=== PATIENT | female | born 1960 | race Two or more races ===

== ENCOUNTER → 2017-10-04 07:27 | Day surgery (SDC) | payer OTHER ==
--- NOTE | 2017-10-02 23:01 | HP ---
CC: Yuridia Zuñiga, MEÑO, Georgia Merida* ADMISSION HISTORY AND PHYSICAL: DATE OF ADMISSION: 10/04/17 DATE OF HISTORY AND PHYSICAL: 10/01/17 ATTENDING SURGEON: Dr. Norman Floyd* (dictated by MELY Vidal). CHIEF COMPLAINT: Left breast cancer. HISTORY OF PRESENT ILLNESS: This is a 57-year-old generally healthy female, who first noted a lump in the left breast in early August. She is quite sure it was not there in June of this year and she tries to do a breast self-exam every month or two. She had had a prior stereotactic biopsy in the same region of the left breast around April 2016, which was benign. Most recent mammogram and ultrasound performed on 09/13/17 revealed a 2.4 x 1.7 cm lesion in the region of the prior biopsy marker (3 to 4 o'clock position of the left breast and by ultrasound located 4 cm from the nipple). This was felt to be suspicious for carcinoma and was new versus her last mammogram from March 2016. She was seen in the office by Dr. Floyd on 09/18/17. By his exam, there was a palpable mass in the lateral aspect of the left breast without any other discrete nodules in the left breast and no palpable nodules in the right breast. There is no palpable lymphadenopathy. 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 The patient's family history is positive for breast cancer in her mother, who is living and was diagnosed with breast cancer at age 79. Her mother ultimately underwent mastectomy. There is no family history of ovarian cancer. Dr. Floyd has discussed the options with the patient. She understands the indications, risks, benefits, and alternatives and would like to proceed as scheduled with wide excision of left breast cancer with sentinel lymph node biopsy. PAST MEDICAL HISTORY: Sciatica, arthritis, and degenerative disk disease. PAST SURGICAL HISTORY: Subtotal hysterectomy for benign disease. CURRENT MEDICATIONS: 1. Premarin 0.625 mg once daily (the patient instructed to stop). 2. Tylenol 325 mg b.i.d. and p.r.n. 3. Ibuprofen p.r.n. ALLERGIES: Drug allergies, none known. FAMILY HISTORY: In addition to above is negative for anesthesia problems, bleeding, or clotting disorders. SOCIAL HISTORY: The patient is and has 2 children. She is a current smoker of approximately 10 cigarettes per day for a total 20 pack year history. She is strongly encouraged to quit. She drinks alcohol occasionally, but not daily or weekly and denies other recreational drug use. REVIEW OF SYSTEMS: General: No recent constitutional symptoms or acute illnesses. Her weight has been stable. Eyes: No recent changes in vision. Ears, Nose, Throat: No problems reported. Cardiovascular: No chest pain, palpitations, history of hypertension. She states that she has been told in the past that she has mitral valve prolapse. Respiratory: No chronic cough or shortness of breath. GI: No problems reported. The patient has never had a screening colonoscopy. She is encouraged to do so. She denies any concerning symptoms. : No problems reported. 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 Endocrine: No thyroid dysfunction or diabetes. Neuro/Psych: No problems reported. Musculoskeletal: She has some chronic lower back pain and sciatica. PHYSICAL EXAMINATION GENERAL: Well-nourished, well-developed female, in no acute distress though she is somewhat teary during the interview. VITAL SIGNS: Height 61 inches, weight 150 pounds, blood pressure 132/80, pulse 102, respirations 16. HEENT: Pupils equal, round, and reactive. EOMs intact. No conjunctival pallor. Oropharynx: No intraoral lesions. NECK: No lymphadenopathy, thyromegaly, or masses. No supraclavicular or cervical lymphadenopathy. BREASTS: As per Dr. Floyd's exam, not repeated today. LUNGS: Clear to auscultation. No rales or wheezes. HEART: Regular rate and rhythm. No murmur noted. ABDOMEN: Soft, nontender to palpation. No palpable masses or organomegaly. GENITALIA: Not done. RECTAL: Not done. BACK: No spinous process or CVA tenderness. EXTREMITIES: No edema. NEUROLOGICAL: Grossly intact. SKIN: Warm and dry. No suspicious rashes or lesions. IMPRESSION: Left breast cancer. PLAN: Wide excision left breast cancer; sentinel lymph node biopsy. MELY VIDAL [id number]/[facility] #: [id number] MTDErnst
[~2017-10-04 07:27] MED LIST: Buffered Lidocaine 0.9% SYRIN* 5 ML/SYR SYRINGE INTRADERM ONE; Buffered Lidocaine 0.9% SYRIN* 5 ML/SYR SYRINGE ONE; Bupivacaine 0.25% SDV* 30 ML ONE; Dexamethasone IV* 4 MG/ML 1 ML (4 MG) ONE; EPHEDrine (Pressors)* 50 MG/ML VIAL ONE; Famotidine IV* 10 MG/ML 2 ML (20 mg) IV ONE; Famotidine IV* 10 MG/ML 2 ML (20 mg) ONE; Glycopyrrolate IV* 0.2 MG/ML 1 ML VIAL ONE; KETAMINE HCL* 50 MG/ML 10 ML VIAL ONE; Ketorolac INJ* 30 MG/ML 1 ML VIAL ONE; Lidocain 1% EPI 1:100,000 * 30 ML MDV ONE; Lidocaine 1% INJ* 10 MG/ML 30 ML SDV ONE; Lidocaine 2% PF * 5 ML VIAL ONE; Lidocaine 2.5%/Prilocain 2.5%* 5 GM TUBE ONE; Metoclopramide TAB* 10 MG ONE; Metoclopramide TAB* 10 MG PO ONE; Midazolam* 1 MG/ML 5 ML VIAL (5 MG) ONE; Naloxone* 0.4 MG/ML 1 ML VIAL IV PRN; Neostigmine Methylsulfate* 1 MG/ML 10 ML VIAL (1 mg/ml) ONE; Ondansetron ODT TAB* 4 MG PO PRN; Propofol* 10 MG/ML 20 ML BTL IV PUSH ONE; ceFAZolin 2 GM PREMIX (*) 2 GM/50 ML BAG IVPB ONE; fentaNYL* 50 MCG/ML 2 ML VIAL (100 MCG VIAL) IV PRN; fentaNYL* 50 MCG/ML 2 ML VIAL (100 MCG VIAL) ONE; oxyCODONE/Acetamin 5/325 MG* TAB PO PRN
--- NOTE | 2017-10-04 09:02 | RAD ---
INDICATION: Left breast carcinoma. Comparison: Correlation is made with prior mammogram from May 03, 2016. Technique: The benefits and risks of the procedure were explained to the patient. The patient consented to the exam. A timeout was performed before beginning the procedure. 0.3 mCi of technetium 99m filtered sulfur colloid were injected in a georgette-areolar location. Four intradermal injections were made. The patient tolerated the procedure well without incident. Multiple images of the chest and left axilla were obtained in the frontal, oblique and lateral projections. FINDINGS: There are 2 nodes with activity seen in the left axilla. The first and more prominent node is located more inferior. Both lymph nodes were marked on the patient's skin. IMPRESSION: LEFT AXILLARY SENTINEL NODES NOTED.
[2017-10-04 14:55] VITALS: BP 123/80
--- NOTE | 2017-10-05 07:15 | OP ---
CC: Yuridia Zuñiga NP * DATE OF OPERATION: 10/04/17 - [facility] DATE OF : 62 SURGEON: Norman Floyd MD LATRINE CLEANER: Cherie Singh NP ANESTHESIOLOGIST: Philip Villarreal MD ANESTHESIA: General anesthetic, local infiltration. PRE-OP DIAGNOSIS: Carcinoma of the left breast. POST-OP DIAGNOSIS: Carcinoma of the left breast. OPERATIVE PROCEDURE: Wide excision, sentinel node biopsy of left breast cancer. DESCRIPTION OF PROCEDURE: The patient was supine on the operative table. After adequate general anesthetic, compression stockings, Vi Hugger warmer, and intravenous antibiotics, the left breast, and axillary regions were prepped with antiseptic, draped in a sterile fashion. The left breast mass was readily palpable. An elliptical incision, approximately 3 x 6 cm, was created and the mass was excised with a wide excision. This was marked with usual localizing sutures and sent fresh to Pathology. The tumor felt close to the deep margin, so additional tissue was taken from the deep margin. This was taken down through the pectoralis fascia. Suture was placed to tierra the true deep margin. Hemostasis was obtained using electrocautery. Irrigation was carried out and closure accomplished using 3-0 and 5-0 Vicryl. In the axilla, local anesthetic was again administered and about a 3- to 4-cm incision was created. Dissection carried down to the axillary rissa basin. An enlarged node was first identified. This was about 1.5 cm in size. It was not hot, but it was removed and then beneath that, was the hot sentinel node. This was sentinel node #1 with a count of about 2500. The basin count was down to about 2 or 3 following its removal. No additional sentinel nodes were identified. Hemostasis was obtained using electrocautery. The closure was accomplished using 3-0 and 5-0 Vicryl following by Steri-Strips in all cases. She was awakened and brought to Recovery in good condition. No complications. No drains. Pathologic specimens were: 1. Wide excision, left breast, with usual marking sutures. 2. Additional deep tissue sutured to margin. 3. [place] node #1 count to 2500. 4. Additional left axillary lymph node. Estimated blood loss for the procedure was less than 100 mL. There were no complications. [id number]/[facility] #: [id number] [facility]
== END | disposition home or self-care (01) ==
LOC: SDS 07:27
PROVIDERS: ATTEND Surgery
DX: C50.512 Malignant neoplasm of lower-outer quadrant of left female breast (principal); I34.1 Nonrheumatic mitral (valve) prolapse; F17.210 Nicotine dependence, cigarettes, uncomplicated; M19.90 Unspecified osteoarthritis, unspecified site; F41.9 Anxiety disorder, unspecified
CPT/HCPCS: 78195; 88305; 88307; 88342; A9270-GY; A9541; J0690; J1100; J1885; J2250; J2704; J2710; J3010

== ENCOUNTER 2019-08-11 14:08 | Emergency (ER) | payer SELFPAY ==
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
[2019-08-11] MEDS ORDERED: levETIRAcetam 1000MG IVPREMIX* 1,000 MG/100 ML BAG IVPB ONE (15:44)
[2019-08-11 16:13] LABS: ABS Basophils 0.1 10^3/ul (0-0.2); ABS Monocytes 0.8 10^3/ul (0-0.8); ABS Neutrophils 13.7 10^3/ul (1.5-7.7); Eosinophil % 0.2 %; Hematocrit 42 % (35-47); Hemoglobin 13.8 g/dL (12.0-16.0); Lymphocyte % 6.4 %; Mean Corpuscular HGB Conc 33 g/dL (31-36); Mean Corpuscular Hemoglobin 31 pg (27-31); Mean Corpuscular Volume 92 fL (80-97); Mean Platelet Volume 7.9 fL (7.4-10.4); Platelet Count 366 10^3/uL (150-450); Red Blood Count 4.52 10^6 /uL (3.70-4.87); Red Cell Distribution Width 14 % (10-15); White Blood Count 15.6 10^3/uL (3.5-10.8)
[2019-08-11 16:22] LABS: INR 1.01 (0.82-1.09)
[2019-08-11 16:24] LABS: Albumin 4.2 g/dL (3.2-5.2); Albumin/Globulin Ratio 1.4 (1-3); BUN/Creatinine Ratio 26.1 (8-20); EGFR African American 106.1 (>60); EGFR Non-African American 87.7 (>60); Globulin 3.1 g/dL (2-4); Potassium 3.8 mmol/L (3.5-5.0); Total Bilirubin 0.5 mg/dL (0.2-1.0); Total Protein 7.3 g/dL (6.4-8.9)
[2019-08-11 16:45] LABS: Urine Appearance Turbid; Urine Bilirubin Negative (Negative); Urine Blood 2+ (Negative); Urine Color Yellow; Urine Glucose 1+(50 mg/dL) (Negative); Urine Ketones Negative (Negative); Urine Nitrite Positive (Negative); Urine Protein 2+(100 mg/dL) (Negative); Urine Specific Gravity 1.019 (1.010-1.030); Urine Urobilinogen Negative (Negative)
[2019-08-11 16:52] LABS: Urine Bacteria Absent (Absent); Urine Red Blood Cell 3+(>10/hpf) (Absent); Urine White Blood Cell 3+(>20/hpf) (Absent)
[2019-08-11 17:14] LABS: Urine Benzodiazepine Screen None Detected (None Detect); Urine Opiates Screen Presumptive Positive (None Detect)
[2019-08-11 17:36] VITALS: BP 128/77
== END 2019-08-11 17:34 | disposition short-term general hospital (02) ==
LOC: ED 14:08
DX: S06.5X0A Traumatic subdural hemorrhage without loss of consciousness, initial encounter (principal); S06.6X0A Traumatic subarachnoid hemorrhage without loss of consciousness, initial encounter; S06.1X0A Traumatic cerebral edema without loss of consciousness, initial encounter; V03.90XA Pedestrian on foot injured in collision with car, pick-up truck or van, unspecified whether traffic or nontraffic accident, initial encounter; Y92.524 Gas station as the place of occurrence of the external cause; I34.1 Nonrheumatic mitral (valve) prolapse; F41.9 Anxiety disorder, unspecified; F17.210 Nicotine dependence, cigarettes, uncomplicated; Z87.442 Personal history of urinary calculi; Z90.710 Acquired absence of both cervix and uterus; M50.31 Other cervical disc degeneration, high cervical region
CPT/HCPCS: 36415; 70450; 71045; 72125; 72170; 80053; 80307; 80320; 81003; 81015; 83605; 85025; 85610; 86850; 86900; 86901; 87077; 87086; 87186; 93005; 96365; 99285; G0480; J1953

== ENCOUNTER 2023-03-30 10:41 | Inpatient (IN) ==
[2023-03-30] MEDS ORDERED: fentaNYL INFUSION 50 mcg/mL VL 2,500 MCG/50 ML VIAL IV SCH (12:00)
[2023-03-30] MEDS: Propofol 10 mg/ml 100 ML BTL 1,000 MG/100 ML BTL IV SCH ×3 (12:05→23:35)
[2023-03-30 12:44] LABS: Resp Rate 16
[2023-03-30 12:46] LABS: PCO2 Arterial 43 mmHg (35-45); PO2 Arterial 120 mmHg (80-100)
[2023-03-30] MEDS ORDERED: fentaNYL 100 mcg/2 ml 50 MCG/ML VIAL IV SLOW PU ONE (13:03)
[2023-03-30 13:08] LABS: ABS Basophils 0.1 10^3/uL (0.0-0.1); ABS Monocytes 0.4 10^3/uL (0.0-0.9); ABS Neutrophils 12.8 10^3/uL (1.5-7.6); Eosinophil % 0.1 %; Hematocrit 36.2 % (35-45); Lymphocyte % 6.9 %; Mean Corpuscular Hemoglobin 29.9 pg (27-33); Mean Corpuscular Hgb Conc 33.1 g/dL (31-36); Mean Corpuscular Volume 90.4 fL (80-97); Mean Platelet Volume 7.1 fL (7.5-11.2); Platelet Count 391 10^3/uL (150-450); Red Cell Distribution Width 14.1 % (12-17); White Blood Count 14.3 10^3/uL (3.8-11.8)
[2023-03-30 13:17] LABS: Urine Appearance Cloudy; Urine Bilirubin Negative (Negative); Urine Blood 2+ (Negative); Urine Color Yellow; Urine Glucose Negative (Negative); Urine Ketones 1+ (Negative); Urine Nitrite Negative (Negative); Urine Protein Negative (Negative); Urine Specific Gravity 1.016 (1.002-1.030); Urine Urobilinogen Negative (Negative)
[2023-03-30 13:22] LABS: INR 1.06 (0.83-1.13)
[2023-03-30 13:26] LABS: Albumin 3.8 g/dL (3.2-5.2); Albumin/Globulin Ratio 1.5 (1-3); Calcium 8.8 mg/dL (8.6-10.3); Creatinine, Serum 0.51 mg/dL (0.51-0.95); Globulin 2.6 g/dL (2-4); Magnesium 1.9 mg/dL (1.9-2.7); Phosphorus 4.5 mg/dL (2.5-5.0); Potassium 3.6 mmol/L (3.5-5.0); Total Bilirubin 0.4 mg/dL (0.2-1.0); Total Protein 6.4 g/dL (6.4-8.9); eGFR CKD-EPI 106.1 (>60)
[2023-03-30 13:38] LABS: Urine Amorphous Crystals Present /HPF (Absent); Urine Bacteria Absent (Absent); Urine Red Blood Cell 3+(>10/hpf) (Absent); Urine White Blood Cell 1+(6-10/hpf) (Absent)
[2023-03-30 14:05] LABS: T4, Total 10.43 mcg/dL (6.09-12.23)
[2023-03-30 14:09] LABS: TSH Ultra Thyroid Stim Horm 1.7 mcIU/mL (0.34-5.60)
[2023-03-30] MEDS: Enoxaparin 40 MG/0.4 ML SYR SUBCUT SCH (14:40)
[2023-03-30] MEDS: Chlorhexidine MOUTHWASH 0.12% 15 ML UDC SWISH SPIT SCH ×3 (14:40→21:01)
[2023-03-30] MEDS: cefTRIAXone 1 gm/50 mL D5W 1 GM/50 ML BAG IV SCH (17:49)
[2023-03-30] MEDS: levETIRAcetam 1000MG IVPREMIX 1,000 MG/100 ML BAG IVPB SCH (20:56)
[2023-03-31] MEDS: Chlorhexidine MOUTHWASH 0.12% 15 ML UDC SWISH SPIT SCH ×6 (01:47→21:17)
[2023-03-31] MEDS ORDERED: Lactated Ringers 1000 ml BAG 1,000 ML IV ONE (02:07)
[2023-03-31] MEDS ORDERED: NS 0.9% 1000 ml BAG 1,000 ML IV SCH ×2 (02:15→07:30)
[2023-03-31] MEDS: Propofol 10 mg/ml 100 ML BTL 1,000 MG/100 ML BTL IV SCH ×4 (03:20→18:24)
[2023-03-31 05:34] LABS: ABS Eosinophils 0.1 10^3/uL (0.0-0.5); ABS Lymphocytes 1.4 10^3/uL (1.0-4.8); ABS Monocytes 0.9 10^3/uL (0.0-0.9); ABS Neutrophils 9.6 10^3/uL (1.5-7.6); ABS Nucleated RBC 0.01 10^3/ul; Eosinophil % 1.1 %; Hematocrit 37.3 % (35-45); Hemoglobin 12.1 g/dL (11.5-14.3); Lymphocyte % 11.9 %; Mean Corpuscular Hemoglobin 29.6 pg (27-33); Mean Corpuscular Hgb Conc 32.5 g/dL (31-36); Mean Platelet Volume 7.1 fL (7.5-11.2); Nucleated Red Blood Cells % 0.1 %/100WBC (0.0-0.8); Platelet Count 356 10^3/uL (150-450); Red Cell Distribution Width 14.5 % (12-17); White Blood Count 12.1 10^3/uL (3.8-11.8)
[2023-03-31 06:51] LABS: Albumin 3.7 g/dL (3.2-5.2); Albumin/Globulin Ratio 1.6 (1-3); Calcium 8.6 mg/dL (8.6-10.3); Creatinine, Serum 0.54 mg/dL (0.51-0.95); Globulin 2.3 g/dL (2-4); Phosphorus 3.7 mg/dL (2.5-5.0); Potassium 3.8 mmol/L (3.5-5.0); Total Bilirubin 0.4 mg/dL (0.2-1.0); eGFR CKD-EPI 104.7 (>60)
[2023-03-31] MEDS ORDERED: KCL 20 MEQ/100 ML IVPREMIX 20 MEQ/100 ML BAG IV ONE (07:14)
[2023-03-31] MEDS ORDERED: Dextrose 50% Syringe 50 ml 25 GM/50 ML SYRINGE IV PUSH ONE (07:19)
[2023-03-31] MEDS ORDERED: Midazolam 2 mg/2 ml VIAL 1 mg/ml 2 ml VIAL (2 mg) IV SLOW PU ONE (07:20)
[2023-03-31] MEDS ORDERED: Midazolam 2 mg/2 ml VIAL 1 mg/ml 2 ml VIAL (2 mg) ONE (07:21)
[2023-03-31] MEDS ORDERED: D5LR 1000 ml BAG 1,000 ML IV SCH (08:00)
[2023-03-31] MEDS: Pantoprazole VIAL 40 MG VIAL IV SCH (08:37)
[2023-03-31] MEDS: fentaNYL INFUSION 50 mcg/mL VL 2,500 MCG/50 ML VIAL IV SCH ×2 (09:00→19:04)
[2023-03-31] MEDS ORDERED: Midazolam 2 mg/2 ml VIAL 1 mg/ml 2 ml VIAL (2 mg) IV SLOW PU PRN (09:01)
[2023-03-31] MEDS: levETIRAcetam 1000MG IVPREMIX 1,000 MG/100 ML BAG IVPB SCH ×2 (09:47→20:13)
[2023-03-31] MEDS ORDERED: Dexmedetomidine 1,000 MCG in NS 0.9% 250 ml 240 ML IV SCH (10:00)
[2023-03-31 12:27] LABS: PCO2 Arterial 37 mmHg (35-45); PO2 Arterial 92 mmHg (80-100)
[2023-03-31] MEDS: Buprenorp/Nalox 2-0.5 mg SL TB SL SCH (12:38)
[2023-03-31] MEDS: cefTRIAXone 1 gm/50 mL D5W 1 GM/50 ML BAG IV SCH (16:48)
[2023-03-31] MEDS: Enoxaparin 40 MG/0.4 ML SYR SUBCUT SCH (16:49)
[2023-04-01] MEDS: Propofol 10 mg/ml 100 ML BTL 1,000 MG/100 ML BTL IV SCH ×2 (01:02→06:03)
[2023-04-01] MEDS: Chlorhexidine MOUTHWASH 0.12% 15 ML UDC SWISH SPIT SCH ×3 (01:02→08:22)
[2023-04-01] MEDS: fentaNYL INFUSION 50 mcg/mL VL 2,500 MCG/50 ML VIAL IV SCH (06:05)
[2023-04-01] MEDS: levETIRAcetam 1000MG IVPREMIX 1,000 MG/100 ML BAG IVPB SCH ×2 (07:53→21:09)
[2023-04-01] MEDS: Pantoprazole VIAL 40 MG VIAL IV SCH (07:53)
[2023-04-01] MEDS: Buprenorp/Nalox 2-0.5 mg SL TB SL SCH (07:53)
[2023-04-01 10:55] LABS: PCO2 Arterial 36 mmHg (35-45); PO2 Arterial 84 mmHg (80-100)
[2023-04-01] MEDS: Enoxaparin 40 MG/0.4 ML SYR SUBCUT SCH (12:10)
[2023-04-01 14:30] LABS: Hematocrit 34.9 % (35-45); Hemoglobin 11.5 g/dL (11.5-14.3); Mean Corpuscular Hemoglobin 29.6 pg (27-33); Mean Corpuscular Hgb Conc 32.9 g/dL (31-36); Mean Corpuscular Volume 89.7 fL (80-97); Mean Platelet Volume 7.6 fL (7.5-11.2); Platelet Count 389 10^3/uL (150-450); Red Blood Count 3.89 10^6/uL (3.63-4.92); Red Cell Distribution Width 14.2 % (12-17); White Blood Count 11.5 10^3/uL (3.8-11.8)
[2023-04-01 14:41] LABS: Albumin 3.6 g/dL (3.2-5.2); Albumin/Globulin Ratio 1.3 (1-3); Calcium 8.8 mg/dL (8.6-10.3); Creatinine, Serum 0.55 mg/dL (0.51-0.95); Globulin 2.8 g/dL (2-4); Potassium 3.4 mmol/L (3.5-5.0); Total Bilirubin 0.5 mg/dL (0.2-1.0); Total Protein 6.4 g/dL (6.4-8.9); eGFR CKD-EPI 104.2 (>60)
[2023-04-01] MEDS: cefTRIAXone 1 gm/50 mL D5W 1 GM/50 ML BAG IV SCH (16:26)
[2023-04-02 04:28] LABS: ABS Basophils 0.1 10^3/uL (0.0-0.1); ABS Eosinophils 0.2 10^3/uL (0.0-0.5); ABS Lymphocytes 1.3 10^3/uL (1.0-4.8); ABS Monocytes 0.8 10^3/uL (0.0-0.9); ABS Neutrophils 6.5 10^3/uL (1.5-7.6); Eosinophil % 2.2 %; Hematocrit 36.1 % (35-45); Hemoglobin 12.1 g/dL (11.5-14.3); Lymphocyte % 14.6 %; Mean Corpuscular Hgb Conc 33.5 g/dL (31-36); Mean Corpuscular Volume 89.7 fL (80-97); Mean Platelet Volume 7.2 fL (7.5-11.2); Platelet Count 369 10^3/uL (150-450); Red Blood Count 4.03 10^6/uL (3.63-4.92); Red Cell Distribution Width 13.8 % (12-17); White Blood Count 8.9 10^3/uL (3.8-11.8)
[2023-04-02 05:01] LABS: Albumin 3.6 g/dL (3.2-5.2); Albumin/Globulin Ratio 1.3 (1-3); Calcium 8.9 mg/dL (8.6-10.3); Creatinine, Serum 0.42 mg/dL (0.51-0.95); Globulin 2.8 g/dL (2-4); Potassium 3.2 mmol/L (3.5-5.0); Total Bilirubin 0.5 mg/dL (0.2-1.0); Total Protein 6.4 g/dL (6.4-8.9); eGFR CKD-EPI 111.2 (>60)
[2023-04-02] MEDS: KCL 20 MEQ/100 ML IVPREMIX 20 MEQ/100 ML BAG IV SCH ×2 (05:35→09:33)
[2023-04-02] MEDS: levETIRAcetam 1000MG IVPREMIX 1,000 MG/100 ML BAG IVPB SCH ×2 (09:13→20:24)
[2023-04-02] MEDS: Buprenorp/Nalox 2-0.5 mg SL TB SL SCH (09:14)
[2023-04-02] MEDS ORDERED: Buprenorp/Nalox 2-0.5 mg SL TB SL SCH (14:00)
[2023-04-02] MEDS: Enoxaparin 40 MG/0.4 ML SYR SUBCUT SCH (14:44)
[2023-04-02] MEDS: Nicotine PATCH 14 MG/24 HR PATCH TRANSDERM SCH (17:55)
[2023-04-02] MEDS: cefTRIAXone 1 gm/50 mL D5W 1 GM/50 ML BAG IV SCH (17:56)
[2023-04-02] MEDS: Buprenorp/Nalox 4-1 MG FILM SL SCH (20:25)
[2023-04-03 05:11] LABS: ABS Basophils 0.1 10^3/uL (0.0-0.1); ABS Eosinophils 0.3 10^3/uL (0.0-0.5); ABS Lymphocytes 1.8 10^3/uL (1.0-4.8); ABS Monocytes 0.8 10^3/uL (0.0-0.9); ABS Neutrophils 5.4 10^3/uL (1.5-7.6); ABS Nucleated RBC 0.01 10^3/ul; Eosinophil % 3.6 %; Hemoglobin 12.4 g/dL (11.5-14.3); Lymphocyte % 21.1 %; Mean Corpuscular Hgb Conc 33.5 g/dL (31-36); Mean Corpuscular Volume 89.5 fL (80-97); Mean Platelet Volume 7.3 fL (7.5-11.2); Nucleated Red Blood Cells % 0.1 %/100WBC (0.0-0.8); Platelet Count 385 10^3/uL (150-450); Red Blood Count 4.13 10^6/uL (3.63-4.92); Red Cell Distribution Width 13.8 % (12-17); White Blood Count 8.4 10^3/uL (3.8-11.8)
[2023-04-03 05:38] LABS: Calcium 9.1 mg/dL (8.6-10.3); Creatinine, Serum 0.48 mg/dL (0.51-0.95); Magnesium 1.9 mg/dL (1.9-2.7); Potassium 3.7 mmol/L (3.5-5.0); eGFR CKD-EPI 107.7 (>60)
[2023-04-03] MEDS ORDERED: Potassium Chloride LIQUID 20 MEQ/15 ML LIQUID PO ONE (07:06)
[2023-04-03] MEDS ORDERED: Magnesium Sulfate 2 gm BAG 2 GM/50 ML BAG IVPB ONE (07:06)
[2023-04-03] MEDS: Buprenorp/Nalox 4-1 MG FILM SL SCH (08:28)
[2023-04-03] MEDS: Nicotine PATCH 14 MG/24 HR PATCH TRANSDERM SCH (09:05)
[2023-04-03] MEDS: levETIRAcetam 1000MG IVPREMIX 1,000 MG/100 ML BAG IVPB SCH (09:48)
[2023-04-03 10:12] VITALS: BP 127/84
== END 2023-04-03 13:21 | disposition home or self-care (01) | DRG 91 ==
LOC: ICU 12:15
PROVIDERS: ADMIT Internal Medicine Pulmonary Disease; ATTEND Internal Medicine Pulmonary Disease